=== PATIENT | female | born 1985 | race Caucasian/White ===

== ENCOUNTER 2020-07-16 22:46 | Emergency (ER) | payer OTHER, SELFPAY ==
[2020-07-16 22:49] VITALS: BP 129/82; PULSE 88; RESP 14; TEMP 36.3; O2SAT 100
[2020-07-16 23:29] LABS: Basophils Absolute Auto 0.1 K/mm3 (0.0-0.1); Basophils Percent Auto 0.5 % (0.2-1.2); Eosinophils Absolute Auto 0.2 K/mm3 (0-0.3); Eosinophils Percent Auto 1.7 % (0-4.4); Hematocrit 41.4 % (37.0-47.0); Hemoglobin 13.8 g/dL (12.0-15.0); Immature Granulocyte Absolute 0.06 K/mm3 (0.00-0.031); Immature Granulocyte Percent A 0.4 % (0-0.5); Mean Corpuscular HGB Conc 33.3 g/dl (32-36); Mean Corpuscular Hemoglobin 29.5 pg (26-34); Mean Corpuscular Volume 88.5 fl (80-100); Mean Platelet Volume 11.5 fl (7.4-10.4); Monocytes Absolute Auto 0.8 K/mm3 (0.1-0.6); Neutrophils Absolute Auto 9.7 K/mm3 (1.3-6.7); Neutrophils Percent Auto 70.4 % (45.5-73.1); Platelet Count Result 217 k/mm3 (150-375); Red Blood Count 4.68 M/mm3 (4.2-5.4); Red Cell Distribution Width 13.3 % (11.5-14.5); White Blood Count 13.8 K/mm3 (4.5-10.0)
[2020-07-16] MEDS: MORPHINE SULFATE 4 MG/ML INJ IV PUSH (23:40)
[2020-07-16 23:47] LABS: Alanine Aminotransferase 46 U/L (4-35); Albumin Level 4.7 g/dL (3.5-5.1); Alkaline Phosphatase 58 U/L (38-126); Anion Gap 9 mmol/L (8-16); Aspartate Amino Transferase 94 U/L (14-36); Bilirubin,Total 0.5 mg/dL (0.2-1.3); Blood Urea Nitrogen 16 mg/dL (7-17); Calcium 9.3 mg/dL (8.4-10.2); Carbon Dioxide 26 mmol/L (22-30); Chloride 102 mmol/L (98-107); Estimated CRCL calculation 103 ml/min; Estimated Glomerular Filt Rate > 60; Glucose 102 mg/dL (65-105); Lipase 111 U/L (23-300); Potassium 3.6 mmol/L (3.4-5.0); Sodium 137 mmol/L (137-145)
[2020-07-16 23:48] LABS: Add Urine Microscopic? YES; Appearance Urine Clear (Clear); Bilirubin Urine Negative (Negative); Blood Urine Negative (Negative); Color Urine Yellow (Yellow); Glucose Urine UA Negative (Negative); Ketones Urine 1+ mg/dL (Negative); Leukocyte Esterase Ur Negative LEU/UL (Negative); Mucus Urine Rare /lpf; Nitrate Urine Negative (Negative); Protein Urine Negative (Negative); RBC Urine 0-2 /hpf (0-2); Specific Grav Ur 1.026 (1.001-1.035); Squamous Epithelial Cell Urine Moderate /hpf (Few); Urobilinogen Urine Negative mg/dL (<2.0); WBC Urine 0-3 /hpf
[2020-07-17 00:01] VITALS: BP 117/88; PULSE 70; RESP 18; O2SAT 100
[2020-07-17 00:19] VITALS: BP 104/70; PULSE 69; RESP 18; O2SAT 99
--- NOTE | 2020-07-17 01:04 | ED.ABDPAIN ---
HPI - Abdominal Pain General Chief Complaint: Abdominal Pain Stated Complaint: abdominal pain Time Seen by Provider: 07/16/20 23:07 History of Present Illness HPI narrative: Patient is a 35-year-old female who presents ER with upper abdominal pain. Intermittent over the last couple days but worse this evening. Not associate with eating or drinking. Radiates to her back. Described as a sharp pressure. No nausea/vomiting/shortness of breath. No urinary issues. No previous history of gallstones. Reports she had a positive test 3 days ago. Her primary OB is located in [place]. Related Data Allergies Allergy/AdvReac Type Severity Reaction Status Date / Time No Known Allergies Allergy Verified 07/16/20 22:52 Review of Systems Review of Systems: All systems reviewed & are unremarkable except as noted in HPI and below Constitutional: Constitutional: Denies chills, Denies fever(s) and Denies weakness Gastrointestinal: Gastrointestinal: Reports abdominal pain, Denies diarrhea, Denies nausea and Denies vomiting Genitourinary: Genitourinary: Denies hematuria, Denies dysuria and Denies urinary incontinence [facility] Past Medical History Medical History (Updated 07/17/20 @ 01:13 by Al Olivo MD) Healthy female adult Surgical History Surgical History (Updated 07/17/20 @ 01:07 by Al Olivo MD) History of Social History Social History (Updated 07/17/20 @ 01:07 by Al Olivo MD) Smoking status: Never smoker Exam Narrative: Exam Narrative: GENERAL: Uncomfortable-appearing, well-nourished, and in no acute distress. HEAD: Normocephalic, atraumatic. ENT: Mucous membranes moist. CHEST: Clear to auscultation. No respiratory distress. HEART: Regular rate and rhythm. Normal peripheral pulses. ABDOMEN: Soft, nontender, nondistended, normal active bowel sounds. EXTREMITIES: Normal range of motion. No edema. SKIN: Warm, dry, no rash. NEURO: Alert and oriented x3. Course Course Emergency Course: Patient informed of results. Pain essentially resolved with morphine. Bedside ultrasound shows distended gallbladder with what appears to be gallbladder sludge and possibly gallstone. There is no pericholecystic fluid or thickening of the gallbladder wall. Discussed case with Dr. Quintanilla. Recommends outpatient follow-up for ultrasound. Patient also received a low-fat diet. Vital Signs Vital signs: Vital Signs Temperature 97.3 F L 07/16/20 22:49 Pulse Rate 88 07/16/20 22:49 Respiratory Rate 14 07/16/20 22:49 Blood Pressure 129/82 07/16/20 22:49 Pulse Oximetry 100 07/16/20 22:49 Temperature 97.3 F L 07/16/20 22:49 Pulse Rate 69 07/17/20 00:19 Respiratory Rate 18 07/17/20 00:19 Blood Pressure 104/70 07/17/20 00:19 Pulse Oximetry 99 07/17/20 00:19 MDM - Abdominal Pain Lab Data Result diagrams: 07/16/20 23:21 07/16/20 23:21 Labs: Lab Results 07/16/20 07/16/20 07/16/20 Range/Units 23:21 23:21 23:32 WBC 13.8 H (4.5-10.0) K/mm3 RBC 4.68 (4.2-5.4) M/mm3 Hgb 13.8 (12.0-15.0) g/dL Hct 41.4 (37.0-47.0) % MCV 88.5 (80-100) fl MCH 29.5 (26-34) pg MCHC 33.3 (32-36) g/dl RDW 13.3 (11.5-14.5) % Plt Count 217 (150-375) k/mm3 MPV 11.5 H (7.4-10.4) fl Immature Gran % (Auto) 0.4 (0-0.5) % Neut % (Auto) 70.4 (45.5-73.1) % Lymph % (Auto) 21.0 (18.3-44.2) % Brule % (Auto) 6.0 (2.6-8.5) % Eos % (Auto) 1.7 (0-4.4) % Baso % (Auto) 0.5 (0.2-1.2) % Lymph # (Auto) 2.90 (0.9-3.2) K/mm3 Brule # (Auto) 0.8 H (0.1-0.6) K/mm3 Eos # (Auto) 0.2 (0-0.3) K/mm3 Baso # (Auto) 0.1 (0.0-0.1) K/mm3 Abs Immat Gran (auto) 0.06 H (0.00-0.031) K/mm3 Absolute Neuts (auto) 9.7 H (1.3-6.7) K/mm3 Absolute Nucleated RBC 0.0 (0.0-0.012) K/mm3 Nucleated RBC % 0.0 (0.0-0.2) % Sodium 137 (137-145) mmol/L Potassium 3.6 (3.4-5.0)
[2020-07-17 01:18] VITALS: BP 103/71; PULSE 66; RESP 18; O2SAT 100
== END 2020-07-17 01:38 | disposition home or self-care (01) ==
PROVIDERS: Emergency Provider Emergency Medicine
DX: K80.50 Calculus of bile duct without cholangitis or cholecystitis without obstruction (principal)
CPT/HCPCS: 36415; 80053; 81001; 81025; 83690; 85025; 96374; 99284; J2270

== ENCOUNTER 2023-12-22 08:26 | Emergency (ER) | payer OTHER, SELFPAY ==
[2023-12-22] VITALS (7 sets, daily range): BP systolic 101–121; BP diastolic 65–82; PULSE 77–88; RESP 16–18; TEMP 36.7; O2SAT 95–100
[2023-12-22 08:49] LABS: Basophils Percent Auto 0.5 % (0.2-1.2); Eosinophils Percent Auto 0.1 % (0-4.4); Hematocrit 45.4 % (37.0-47.0); Hemoglobin 14.7 g/dL (12.0-15.0); Immature Granulocyte Absolute 0.03 K/mm3 (0.00-0.031); Immature Granulocyte Percent A 0.3 % (0-0.5); Lymphocytes Absolute Auto 0.55 K/mm3 (0.9-3.2); Lymphocytes Percent Auto 6.2 % (18.3-44.2); Mean Corpuscular HGB Conc 32.4 g/dl (32-36); Mean Corpuscular Volume 89.5 fl (80-100); Mean Platelet Volume 11.6 fl (7.4-10.4); Monocytes Absolute Auto 0.4 K/mm3 (0.1-0.6); Monocytes Percent Auto 4.4 % (2.6-8.5); Neutrophils Absolute Auto 7.8 K/mm3 (1.3-6.7); Neutrophils Percent Auto 88.5 % (45.5-73.1); Platelet Count Result 206 k/mm3 (150-375); Red Blood Count 5.07 M/mm3 (4.2-5.4); Red Cell Distribution Width 13.3 % (11.5-14.5); White Blood Count 8.9 K/mm3 (4.5-10.0)
[2023-12-22 08:59] LABS: Alanine Aminotransferase 41 U/L (6-35); Albumin Level 4.7 g/dL (3.5-5.1); Alkaline Phosphatase 73 U/L (38-126); Anion Gap 13 mmol/L (8-16); Aspartate Amino Transferase 38 U/L (14-36); Bilirubin,Total 1.3 mg/dL (0.2-1.3); Blood Urea Nitrogen 17 mg/dL (7-17); Calcium 9.2 mg/dL (8.4-10.2); Carbon Dioxide 24 mmol/L (22-30); Chloride 101 mmol/L (98-107); Estimated CRCL calculation 87 ml/min; Estimated Glomerular Filt Rate > 60; Glucose 107 mg/dL (65-110); Lipase 37 U/L (23-300); Potassium 3.6 mmol/L (3.4-5.0); Sodium 138 mmol/L (137-145)
--- NOTE | 2023-12-22 09:02 | ED.GENADULT ---
HPI - General Adult General Chief complaint: Nausea/Vomiting/Diarrhea Stated complaint: n/v Time Seen by Provider: 12/22/23 08:36 History of Present Illness HPI narrative: 38-year-old female presenting to the emergency department for evaluation of persistent nausea and vomiting. Patient states that she has had symptoms ongoing for the last 24 hours. Patient states she has been unable to keep anything down. Patient states when she does have active nausea and vomiting she does have some abdominal cramping with it. Patient denies any current abdominal pain. Patient does have a prior history of cholecystectomy and . Patient has been taking semaglutide but states she has not had any adverse reactions so far. Related Data Allergies Allergy/AdvReac Type Severity Reaction Status Date / Time No Known Allergies Allergy Verified 07/17/20 10:00 Review of Systems Review of Systems: All systems reviewed & are unremarkable except as noted in HPI and below PMFSH Past Medical History Medical History (Updated 12/22/23 @ 12:06 by Manish Rivero MD) Healthy female adult Surgical History Surgical History History of 2018 Family History Family History Father Malignant neoplasm of prostate Social History Social History (Updated 07/17/20 @ 10:01 by Daily Noe CMA) Smoking status: Never smoker Alcohol intake: never Additional occupation/education comments: [employer] Exam Narrative: APPEARANCE: Well appearing, no pain, no distress, well-nourished. HEAD: normocephalic, atraumatic. EYES: PERRLA/EOMI, conjunctivae clear. NOSE: Normal no drainage NECK: Supple. No adenopathy, no masses. RESPIRATORY: Airway patent, respirations nonlabored. Clear to auscultation bilaterally, no rales, rhonchi, wheezing. CARDIOVASCULAR: Regular rate and rhythm without murmurs rubs or gallops. ABDOMINAL: Epigastric tenderness to palpation MUSCULOSKELETAL: Moves all extremities. Strength/ROM intact, No edema, No calf tenderness. NEURO: Alert. Cranial nerves II through XII intact. Grossly intact SKIN: Warm, dry. Normal Color Course Course Emergency Course: 38-year-old female presenting to the emergency department for evaluation nausea and vomiting with diarrhea. Patient was afebrile with no leukocytosis and a stable hemoglobin, no significant abnormalities on her CMP, UA did show some bacteria but patient denies any urinary symptoms, urine culture was ordered. Patient was negative for influenza RSV and for COVID. Patient did have some ketones in her urine so she was treated with 2 L of fluid and patient does feel improved. Vital Signs Vital signs: Vital Signs Temperature 98.1 F 12/22/23 08:34 Pulse Rate 88 12/22/23 08:34 Respiratory Rate 18 12/22/23 08:34 Blood Pressure 101/82 12/22/23 08:34 Pulse Oximetry 98 12/22/23 08:34 Temperature 98.1 F 12/22/23 08:34 Pulse Rate 77 12/22/23 12:20 Respiratory Rate 16 12/22/23 12:20 Blood Pressure 106/71 12/22/23 12:20 Pulse Oximetry 100 12/22/23 12:20 Medical Decision Making Differential Diagnosis Differential Diagnosis: Enterocolitis, colitis, adverse drug reaction, COVID, influenza, RSV Vital Signs Vital Signs: Vital Signs Temperature 98.1 F 12/22/23 08:34 Pulse Rate 88 12/22/23 08:34 Respiratory Rate 18 12/22/23 08:34 Blood Pressure 101/82 12/22/23 08:34 Pulse Oximetry 98 12/22/23 08:34 Temperature 98.1 F 12/22/23 08:34 Pulse Rate 77 12/22/23 12:20 Respiratory Rate 16 12/22/23 12:20 Blood Pressure 106/71 12/22/23 12:20 Pulse Oximetry 100 12/22/23 12:20 Lab Data Lab results reviewed: Yes I reviewed the patient's lab results. 12/22/23 08:42 12/22/23 08:42 Labs: Lab Results 12/22/23 12/22/23 12/22/23 Range/Units
[2023-12-22] MEDS: SODIUM CHLORIDE 0.9% IV 1,000 ML 999 ML IV CONT (09:30)
[2023-12-22] MEDS: PANTOPRAZOLE SODIUM IV 40 MG VIAL IV PUSH (09:31)
[2023-12-22] MEDS: ONDANSETRON INJ 4 MG/2 ML VIAL IV PUSH (09:31)
[2023-12-22 09:43] LABS: Influenza A QL RT-PCR Negative (Negative); Influenza B QL RT-PCR Negative (Negative); RSV RNA, RT-PCR Negative (Negative); SARS-CoV-2 RNA PCR Negative (Negative)
[2023-12-22 10:30] LABS: Appearance Urine Cloudy (Clear); Bacteria Urine 2+ /hpf; Bilirubin Urine 1+ (Negative); Blood Urine Negative (Negative); Color Urine Dark Yellow (Yellow); Glucose Urine UA Negative (Negative); Ketones Urine 2+ mg/dL (Negative); Leukocyte Esterase Ur Negative LEU/UL (Negative); Nitrate Urine Negative (Negative); Protein Urine 1+ mg/dL (Negative); Squamous Epithelial Cell Urine Moderate /hpf (Few); WBC Urine 0-5 /hpf; pH Urine 5.5 (5.0-9.0)
[2023-12-22 10:33] LABS: Add Urine Microscopic? YES; Specific Grav Ur 1.036 (1.001-1.035)
[2023-12-22] MEDS: SODIUM CHLORIDE 0.9% IV 1,000 ML 999 ML (11:18)
== END 2023-12-22 12:20 | disposition home or self-care (01) ==
PROVIDERS: Emergency Provider Emergency Medicine
DX: R11.2 Nausea with vomiting, unspecified (principal); R19.7 Diarrhea, unspecified; Z20.822 Contact with and (suspected) exposure to COVID-19
CPT/HCPCS: 36415; 80053; 81001; 81025; 83690; 85025; 87637; 96361; 96374; 96375; 99284; C9113; J2405; J7030